=== PATIENT | female | born 1965 | race Hispanic/Latino ===

== ENCOUNTER 2019-05-18 08:00 | Emergency (ER) | payer OTHER, SELFPAY ==
--- NOTE | 2019-05-18 09:02 | RAD ---
3 VIEWS RIGHT SHOULDER: Date: 05/18/19 COMPARISON: None. HISTORY: Right arm pain after fall. FINDINGS: 3 views of right shoulder show no evidence of acute fracture or dislocation. No degenerative changes are seen. Visualized right thorax is unremarkable. IMPRESSION: Unremarkable exam. POS: CET
--- NOTE | 2019-05-18 09:07 | CT ---
CT LUMBAR SPINE WITHOUT CONTRAST: HISTORY: Fall, back pain FINDINGS: The vertebral body heights are maintained. No fracture or subluxation is seen. There are degenerative changes in the lower lumbar spine. A broad-based disc bulge at the lumbosacral disc is seen with bilateral neural foraminal stenosis. IMPRESSION: No evidence of fracture or subluxation.
[2019-05-18] MEDS ORDERED: Ketorolac Tromethamine 60 MG/2 ML VIAL ONE (09:10)
== END 2019-05-18 09:16 | disposition home or self-care (01) ==
LOC: ERS 08:00
DX: S39.012A Strain of muscle, fascia and tendon of lower back, initial encounter (principal); M25.511 Pain in right shoulder; E11.9 Type 2 diabetes mellitus without complications; I10 Essential (primary) hypertension; Z79.82 Long term (current) use of aspirin; Z79.899 Other long term (current) drug therapy; W01.0XXA Fall on same level from slipping, tripping and stumbling without subsequent striking against object, initial encounter
CPT/HCPCS: 72131; 96372; J1885

== ENCOUNTER 2020-05-05 16:07 | Emergency (ER) | payer OTHER, SELFPAY | END 2020-05-05 16:45 | disposition home or self-care (01) | LOC: ERS 16:07 | DX: U07.1 COVID-19 (principal); E11.9 Type 2 diabetes mellitus without complications; I10 Essential (primary) hypertension; Z79.84 Long term (current) use of oral hypoglycemic drugs; Z79.899 Other long term (current) drug therapy | CPT/HCPCS: 87635; 99283; U0003 ==